=== PATIENT | female | born 1980 | race Caucasian/White ===

== ENCOUNTER 2019-09-05 08:58 | Outpatient (CLI) | payer SELFPAY | END 2019-09-05 09:18 | PROVIDERS: PCP Family Medicine; Visit Provider Family Medicine | DX: Z20.828 Contact with and (suspected) exposure to other viral communicable diseases (principal) | CPT/HCPCS: U0003 ==

== ENCOUNTER 2019-09-10 10:00 | Outpatient (CLI) | payer SELFPAY ==
[2019-09-13 14:02] LABS: COVID-19 RT-PCR Result Not Detected (NotDetected)
== END 2019-09-10 10:20 ==
PROVIDERS: PCP Family Medicine; Visit Provider Family Medicine
DX: Z20.828 Contact with and (suspected) exposure to other viral communicable diseases (principal)
CPT/HCPCS: U0003

== ENCOUNTER 2022-08-03 01:22 | Outpatient (CLI) | payer MEDICAID, SELFPAY ==
--- NOTE | 2022-08-03 08:00 | DI.MRI_ITS ---
Exam(s) MR BRAIN WO EXAM: MR BRAIN WO CLINICAL HISTORY: Two episodes with loss of awareness and headache,TRANSIENT AMNESIA,R41.3 TECHNIQUE: Multiplanar multisequence MRI of the brain was performed. COMPARISON: No exams were available for comparison FINDINGS: VENTRICLES AND EXTRA AXIAL SPACES: Normal in size and morphology for the patient's age. MIDLINE SHIFT: None. CEREBRAL PARENCHYMA: No focus of restricted diffusion to suggest acute infarct. No space-occupying le atul identified. HEMORRHAGE: None. BRAINSTEM/CEREBELLUM: Normal. CALVARIUM: Normal. VISUALIZED PARANASAL SINUSES/MASTOIDS:Clear. MUCKLESHOOT OF MUNIZ: Normal flow void. PITUITARY GLAND: Unremarkable. OTHER FINDINGS: None. IMPRESSION: Unremarkable MRI of the brain. DATA REPOSITORY:
== END 2022-08-03 01:42 ==
LOC: DI 01:22
PROVIDERS: PCP Family Medicine; Visit Provider Family Medicine
DX: R41.3 Other amnesia (principal); R51.9 Headache, unspecified
CPT/HCPCS: 70551

== ENCOUNTER 2024-03-05 01:23 | Outpatient (CLI) | payer MEDICAID, SELFPAY ==
--- NOTE | 2024-03-05 07:00 | DI.MRI_ITS ---
Exam(s) MR CERVICAL SPINE WO EXAM: MR CERVICAL SPINE WO CLINICAL HISTORY: familyh/o ms, left foot decreased ROM, paresthesias,upper limb weakness, TECHNIQUE: Multiplanar multisequence MRI of the cervical spine was performed without intravenous con trast. COMPARISON: No exams were available for comparison FINDINGS: BONES: Vertebral body heights are maintained. Intervertebral disc spaces are normal. There is straigh tening of the normal cervical lordosis. Endplate degenerative signal changes are seen particularly a t C4-5 and C5-C6. CERVICAL CORD: Craniovertebral junction is unremarkable. The cervical cord is normal size and signal intensity. SOFT TISSUES: Unremarkable. C2-3: No disc herniation or bulge is identified. No significant central spinal canal or neural forami nal stenosis. C3-4: No disc herniation or bulge is identified. No significant central spinal canal or neural forami nal stenosis C4-5: No disc herniation or bulge is identified. No significant central spinal canal or neural forami nal stenosis C5-6: There are osteophytes seen posteriorly at this level. There is also diffuse disc bulge. There is flattening of the anterior thecal sac and anterior spinal cord. The AP diameter of the spinal ca nal is 8 mm. This compares to 11 mm at C4-C5. Degenerative changes of the uncovertebral joints are p resent. There is mild bilateral neural foraminal stenosis. C6-7: There is a left-sided disc herniation. There is effacement of the anterior thecal sac but no s ignificant compression on the spinal cord. No right neural foraminal stenosis is seen. There is mil d narrowing of the left neural foramen. C7-T1: No disc herniation or bulge is identified. No significant central spinal canal or neural sallie inal stenosis IMPRESSION: 1. Normal signal in the spinal cord. No evidence of a spinal cord lesion. 2. Degenerative changes seen at C5-C6 causing central spinal canal stenosis and mild bilateral neural foraminal stenosis. 3. Left-sided disc herniation at C6-C7 extending into the neural foramen causing mild left neural for aminal stenosis. DATA REPOSITORY:
--- NOTE | 2024-03-05 07:00 | DI.MRI_ITS ---
Exam(s) MR LUMBAR SPINE WO EXAM: MR LUMBAR SPINE WO CLINICAL HISTORY: paresthesia left leg,decreased range of motion lt foot,m25.675,r20.2. TECHNIQUE: Multiplanar multisequence MRI of the Lumbar spine was performed. COMPARISON: No exams were available for comparison FINDINGS: Bones: The last intervertebral disc space is designated the L5/S1 level for the numbering purpose of this examination. The vertebral body heights are well maintained. Alignment is satisfactory. The si gnal characteristics are unremarkable. Cord: The conus tip ends at the T12 level. It is of normal size and signal intensity. T12-L1: No disc herniations or bulges are present. No central spinal canal or neural foraminal stenos is. L1-2: No disc herniations or bulges are present. No central spinal canal or neural foraminal stenosis . L2-3: There is a mild left lateral disc protrusion into the left neural foramen with mild narrowing o f the left neural foramen. No significant central spinal canal or right neural foraminal stenosis is seen. No central spinal canal or neural foraminal stenosis. L3-4: There is mild disc protrusion on the left into the neural foramen causing mild left neural fora nacny narrowing. No significant central spinal canal or right neural foraminal stenosis is present. L4-5: There is a small central disc protrusion at this level. Mild degenerative changes are seen in the facets. No significant central spinal canal stenosis is seen.No significant neural foraminal sherine nosis is present. L5-S1: No disc herniations or bulges are present. No central spinal canal or neural foraminal stenosi s. Soft tissues: The visualized SI joints and sacrum are well maintained. The paraspinal soft tissues ar e unremarkable. Visualized abdominal organs: There is a 1.4 cm simple cyst in the left kidney. No follow-up is recom mended. IMPRESSION: 1. Left-sided disc protrusions into the neural foramen at both L2-3 and L3-L4 causing mild left neura l foraminal stenosis. 2. Disc protrusion at L4-L5 without significant central spinal canal or neural foraminal stenosis. DATA REPOSITORY:
== END 2024-03-05 01:43 ==
LOC: DI 01:23
PROVIDERS: PCP Nurse Practitioner Family; Visit Provider Nurse Practitioner Family
DX: M48.062 Spinal stenosis, lumbar region with neurogenic claudication (principal); Z82.0 Family history of epilepsy and other diseases of the nervous system; M50.122 Cervical disc disorder at C5-C6 level with radiculopathy
CPT/HCPCS: 72141; 72148

== ENCOUNTER 2024-12-27 09:42 | Outpatient (CLI) | payer MEDICAID, SELFPAY ==
--- NOTE | 2024-12-27 09:30 | RT.EKG_ITS ---
APPROVED REPORT Exam: Resting ECG Reason for Exam: preop testing Patient Location: O HR:69 bpm ECG Measurements Heart Rate 69 AXIS SC 159 P 22 QRSd 90 QRS 16 QT 369 T 42 QTc 396 Conclusion Sinus rhythm...normal P axis, V-rate 50- 99 Normal Electrocardiogram
[2024-12-27 10:39] LABS: Abs Immature Grans 0.01 10^3/uL (0.0-0.06); HCT 39.8 % (36.0-46.0); HGB 13.4 g/dL (11.2-15.7); Immature Grans % 0.2 %; MCH 31.1 pg (27.0-33.0); MCHC 33.7 % (32.0-36.0); MCV 92 fL (80-95); MPV 10.4 fL (8.0-11.0); Platelet Count 210 10^3/uL (130-400); RBC 4.31 10^6/uL (3.93-5.22); RDW 12.3 % (11.7-14.6); RDW-SD 42.4 fL; WBC 6.08 10^3/uL (4.4-10.8)
[2024-12-27 11:01] LABS: INR 1.0 (0.9-1.1); Prothrombin Time 9.6 sec (9.1-11.1)
[2024-12-27 11:11] LABS: PTT Activated 27.0 sec (20.6-30.2)
[2024-12-27 11:22] LABS: Hemoglobin A1C 5.2 % (<5.7)
[2024-12-27 11:29] LABS: ALT 43 U/L (14-59); AST 31 U/L (15-37); Albumin 3.9 g/dL (3.4-5.0); Alkaline Phosphatase 75 U/L (46-116); Anion Gap 7.6 mmol/L (3-11); BUN 15 mg/dL (7-18); Bilirubin, Total 0.4 mg/dL (0.2-1.0); CO2 27.4 mmol/L (21.0-32.0); Calcium 9.0 mg/dL (8.5-10.1); Calculated LDL 122 mg/dL (<100); Chloride 104 mmol/L (98-107); Cholesterol 186 mg/dL (<200); Estimated GFR 119.27 (mL/min/1.73m2); Glucose 93 mg/dL (74-106); HDL Cholesterol 49 mg/dL (>or=50); Potassium 4.3 mmol/L (3.5-5.1); Sodium 139 mmol/L (136-145); TSH 0.15 uIU/mL (0.36-3.74); Total Protein 7.2 g/dL (6.4-8.2); Triglyceride 76 mg/dL (<150)
== END 2024-12-27 09:43 | disposition home or self-care (01) ==
LOC: DI.KIM 09:43
PROVIDERS: PCP Nurse Practitioner Family; Visit Provider Family Medicine
DX: Z01.818 Encounter for other preprocedural examination (principal); Z13.89 Encounter for screening for other disorder; E03.9 Hypothyroidism, unspecified
CPT/HCPCS: 36415; 80053; 80061; 93010; 83036; 84443; 85025; 85610; 85730

== ENCOUNTER 2024-12-27 10:36 | Outpatient (CLI) | payer MEDICAID, SELFPAY ==
[2024-12-27 11:25] LABS: Glucose Negative (Negative)
== END 2024-12-27 10:37 | disposition home or self-care (01) ==
LOC: LBO 10:37
PROVIDERS: PCP Nurse Practitioner Family; Visit Provider Family Medicine
DX: Z13.89 Encounter for screening for other disorder (principal)
CPT/HCPCS: 81003